=== PATIENT | female | born 1995 | race Caucasian/White ===

== ENCOUNTER 2019-07-28 13:06 | Inpatient (IN) | payer MEDICAID ==
[2019-07-28] MEDS: DIPHENHYDRAMINE 50 MG INJ IV (14:31)
[2019-07-28] MEDS: KETOROLAC 30 MG INJ IV (14:32)
[2019-07-28] MEDS: SOD CHLORIDE 0.9% 500 ML IV ×2 (14:32→21:57)
[2019-07-28 14:34] LABS: ADD MAN DIFF? NO
[2019-07-28 14:37] LABS: BASOPHILS % 0.1 % (0.0-2.0); EOSINOPHILS # 0.1 10^3/ul (0.0-0.5); EOSINOPHILS % 0.7 % (0.0-7.0); HEMATOCRIT 37.1 % (37.0-47.0); HEMOGLOBIN 12.3 g/dl (12.0-16.0); LYMPHOCYTES # 1.5 10^3/ul (0.8-2.9); LYMPHOCYTES % 19.4 % (15.0-51.0); MEAN CORPUSCULAR HEMOGLOBIN 30.8 pg (29.0-33.0); MEAN CORPUSCULAR HGB CONC 33.2 g/dl (32.0-37.0); MEAN CORPUSCULAR VOLUME 92.8 fl (82.0-101.0); MEAN PLATELET VOLUME 9.4 fl (7.4-10.4); MONOCYTE # 0.8 10^3/ul (0.3-0.9); MONOCYTES % 9.8 % (0.0-11.0); NEUTROPHIL # 5.3 10^3/ul (1.6-7.5); NEUTROPHILS % 69.7 % (39.0-77.0); PLATELET COUNT 282 10^3/UL (140-415)
[2019-07-28 14:37] LABS: WHITE BLOOD COUNT 7.6 10^3/ul (4.8-10.8)
[2019-07-28] MEDS: METOCLOPRAMIDE 10 MG INJ IV (14:37)
[2019-07-28 14:44] LABS: ANION GAP 7 (5-13); BLOOD UREA NITROGEN 12 mg/dl (7-20); CALCIUM 9.2 mg/dl (8.4-10.2); CARBON DIOXIDE 26 mmol/L (21-31); CHLORIDE 102 mmol/L (97-110); Estimated GFR > 60 mL/min (>60); GLUCOSE 90 mg/dl (70-220); POTASSIUM 4.1 mmol/L (3.5-5.1); SODIUM 135 mmol/L (135-144)
[2019-07-28 14:51] LABS: ADD UMIC NO; UR ASCORBIC ACID 20 mg/dL (NEGATIVE); UR BACTERIA FEW /HPF (NONE SEEN); UR BILIRUBIN (Dip) NEGATIVE (NEGATIVE); UR BLOOD (Dip) NEGATIVE (NEGATIVE); UR CLARITY SLIGHTLY CLOUDY (CLEAR); UR COLOR YELLOW (YELLOW); UR GLUCOSE (Dip) NEGATIVE (NEGATIVE); UR KETONES (Dip) TRACE mg/dL (NEGATIVE); UR LEUKOCYTE ESTERASE (Dip) NEGATIVE Leu/ul (NEGATIVE); UR MUCUS FEW /HPF (NONE SEEN); UR NITRITE (Dip) NEGATIVE (NEGATIVE); UR RBC 7 /HPF (0-5); UR SPECIFIC GRAVITY (Dip) 1.023 (1.003-1.030); UR SQUAMOUS EPITHELIAL CELL FEW /HPF (FEW); UR TOTAL PROTEIN (Dip) NEGATIVE (NEGATIVE); UR UROBILINOGEN (Dip) NEGATIVE (NEGATIVE); UR WBC 5 /HPF (0-5)
[2019-07-28 15:00] LABS: PROTIME 13.3 Sec (11.9-14.9)
[2019-07-28 18:11] LABS: CSF RBC 0 /uL (0-0)
[2019-07-28 18:13] LABS: CSF RBC 0 /uL (0-0)
[2019-07-28 19:00] LABS: CSF CLARITY CLEAR; CSF COLOR COLORLESS; CSF#TUBES REC'D 4
[2019-07-28 19:01] LABS: CSF#TUBE COUNT TUBE#4
[2019-07-28 19:03] LABS: CSF COLOR COLORLESS
[2019-07-28 19:03] LABS: CSF CLARITY CLEAR; CSF WBC 28 /cmm (0-10); CSF#TUBE COUNT TUBE#1; CSF#TUBES REC'D 4
[2019-07-28 19:04] LABS: CSF WBC 26 /cmm (0-10)
[2019-07-28 19:12] LABS: TOTAL PROTEIN,CSF 47 mg/dl (12-60)
[2019-07-28 19:12] LABS: GLUCOSE,CSF 47 mg/dl (50-80)
[2019-07-28 19:23] LABS: CSF MN% 67.9 %; CSF PMN% 32.1 %
[2019-07-28 19:24] LABS: CSF MN% 80.7 %; CSF PMN% 19.3 %
[2019-07-28] MEDS: AZTREONAM 2 GM in DEXTROSE 5% 100 ML IVPB (19:58)
[2019-07-28] MEDS ORDERED: DOCUSATE SODIUM 100 MG CAP PO (20:30)
[2019-07-28] MEDS ORDERED: VANCOMYCIN IV PER PHARMACY XX (20:30)
[2019-07-28] MEDS ORDERED: NACL 0.9% 3 ML SYG IV (20:30)
[2019-07-28] MEDS ORDERED: BISACODYL (EC) 5 MG TAB PO (20:30)
[2019-07-28] MEDS ORDERED: IBUPROFEN 600 MG TAB PO (20:30)
[2019-07-28 21:31] LABS: LACTIC ACID 0.6 mmol/L (0.5-2.0)
[2019-07-28] MEDS: ACETAMINOPHEN 325 MG TAB PO (22:06)
[2019-07-28] MEDS: VANCOMYCIN 1 GM 250 ML IVPB (23:31)
[2019-07-29] MEDS: ASA/ACETAMINOPHEN/CAFF TAB PO (00:40)
[2019-07-29] MEDS: morphine 2 MG INJ IV ×5 (00:54→22:44)
[2019-07-29] MEDS: AZTREONAM 2 GM in SOD CHLORIDE 0.9% 100 ML IVPB ×3 (05:29→20:19)
[2019-07-29 06:11] LABS: ADD MAN DIFF? NO
[2019-07-29 06:12] LABS: BASOPHILS % 0.3 % (0.0-2.0); EOSINOPHILS # 0.1 10^3/ul (0.0-0.5); EOSINOPHILS % 0.9 % (0.0-7.0); HEMATOCRIT 34.6 % (37.0-47.0); HEMOGLOBIN 11.4 g/dl (12.0-16.0); LYMPHOCYTES # 2.4 10^3/ul (0.8-2.9); LYMPHOCYTES % 30.9 % (15.0-51.0); MEAN CORPUSCULAR HEMOGLOBIN 30.8 pg (29.0-33.0); MEAN CORPUSCULAR HGB CONC 32.9 g/dl (32.0-37.0); MEAN CORPUSCULAR VOLUME 93.5 fl (82.0-101.0); MEAN PLATELET VOLUME 9.2 fl (7.4-10.4); MONOCYTE # 0.7 10^3/ul (0.3-0.9); MONOCYTES % 9.3 % (0.0-11.0); NEUTROPHIL # 4.5 10^3/ul (1.6-7.5); NEUTROPHILS % 58.3 % (39.0-77.0); PLATELET COUNT 279 10^3/UL (140-415); RED CELL DISTRIBUTION WIDTH 12.2 % (11.5-14.5)
[2019-07-29 06:12] LABS: WHITE BLOOD COUNT 7.7 10^3/ul (4.8-10.8)
[2019-07-29 06:33] LABS: ALANINE AMINOTRANSFERASE 31 IU/L (13-69); ALBUMIN 2.9 g/dl (3.3-4.9); ALBUMIN/GLOBULIN RATIO 0.93; ALKALINE PHOSPHATASE 49 IU/L (42-121); ANION GAP 5 (5-13); ASPARTATE AMINO TRANSFERASE 22 IU/L (15-46); BILIRUBIN,INDIRECT 0.3 mg/dl (0-1.1); BILIRUBIN,TOTAL 0.3 mg/dl (0.2-1.3); BLOOD UREA NITROGEN 11 mg/dl (7-20); CALCIUM 8.5 mg/dl (8.4-10.2); CARBON DIOXIDE 23 mmol/L (21-31); CHLORIDE 109 mmol/L (97-110); CREATININE 0.69 mg/dl (0.44-1.00); Estimated GFR > 60 mL/min (>60); GLUCOSE 92 mg/dl (70-220); POTASSIUM 4.1 mmol/L (3.5-5.1); SODIUM 137 mmol/L (135-144)
[2019-07-29] MEDS: ACETAMINOPHEN 325 MG TAB PO ×2 (08:23→20:19)
[2019-07-29] MEDS: KETOROLAC 30 MG INJ IV (08:24)
[2019-07-29] MEDS: VANCOMYCIN 500 MG (PMX) 100 ML IVPB ×2 (09:33→17:12)
[2019-07-29] MEDS ORDERED: VANCOMYCIN 750 MG (PMX) 250 ML IVPB (11:00)
[2019-07-29] MEDS: ONDANSETRON 4 MG INJ IV (19:36)
[2019-07-30 01:37] LABS: VANCOMYCIN,TROUGH 8.7 ug/ml (10.0-20.0)
[2019-07-30] MEDS: VANCOMYCIN 500 MG (PMX) 100 ML IVPB (01:43)
[2019-07-30] MEDS: morphine 2 MG INJ IV ×3 (04:22→16:38)
[2019-07-30] MEDS: AZTREONAM 2 GM in SOD CHLORIDE 0.9% 100 ML IVPB ×2 (05:08→14:25)
[2019-07-30] MEDS: VANCOMYCIN 750 MG (PMX) 250 ML IVPB (08:32)
[2019-07-30] MEDS: SOD CHLORIDE 0.9% 1,000 ML IV ×2 (11:25→21:00)
[2019-07-30 12:27] LABS: HIV 1&2 ANTIBODY NEGATIVE (NEGATIVE)
[2019-07-30] MEDS: ONDANSETRON 4 MG INJ IV (12:43)
[2019-07-30] MEDS: KETOROLAC 30 MG INJ IV ×2 (13:00→22:08)
[2019-07-30 18:56] LABS: RAPID PLASMA REAGIN NONREACTIVE (NR)
[2019-07-30] MEDS: FAMOTIDINE 20 MG TAB PO (20:14)
[2019-07-31] MEDS: KETOROLAC 30 MG INJ IV ×3 (05:14→17:57)
[2019-07-31 06:47] LABS: ADD MAN DIFF? NO
[2019-07-31 06:51] LABS: WHITE BLOOD COUNT 6.7 10^3/ul (4.8-10.8)
[2019-07-31 06:51] LABS: BASOPHILS % 0.3 % (0.0-2.0); EOSINOPHILS # 0.1 10^3/ul (0.0-0.5); EOSINOPHILS % 1.3 % (0.0-7.0); HEMATOCRIT 35.7 % (37.0-47.0); HEMOGLOBIN 11.8 g/dl (12.0-16.0); LYMPHOCYTES # 2.3 10^3/ul (0.8-2.9); LYMPHOCYTES % 33.5 % (15.0-51.0); MEAN CORPUSCULAR HEMOGLOBIN 30.5 pg (29.0-33.0); MEAN CORPUSCULAR HGB CONC 33.1 g/dl (32.0-37.0); MEAN CORPUSCULAR VOLUME 92.2 fl (82.0-101.0); MEAN PLATELET VOLUME 9.2 fl (7.4-10.4); MONOCYTE # 0.7 10^3/ul (0.3-0.9); MONOCYTES % 10.7 % (0.0-11.0); NEUTROPHIL # 3.6 10^3/ul (1.6-7.5); NEUTROPHILS % 53.9 % (39.0-77.0); PLATELET COUNT 270 10^3/UL (140-415); RED BLOOD COUNT 3.87 10^6/ul (4.20-5.40); RED CELL DISTRIBUTION WIDTH 12.1 % (11.5-14.5)
[2019-07-31 07:31] LABS: PHOSPHORUS 3.7 mg/dl (2.5-4.9)
[2019-07-31 07:31] LABS: ANION GAP 7 (5-13); BLOOD UREA NITROGEN 10 mg/dl (7-20); CARBON DIOXIDE 26 mmol/L (21-31); CHLORIDE 104 mmol/L (97-110); CREATININE 0.79 mg/dl (0.44-1.00); Estimated GFR > 60 mL/min (>60); GLUCOSE 89 mg/dl (70-220); MAGNESIUM 1.9 mg/dl (1.7-2.5); SODIUM 137 mmol/L (135-144)
[2019-07-31] MEDS: FAMOTIDINE 20 MG TAB PO (10:09)
[2019-07-31] MEDS: morphine 2 MG INJ IV (10:09)
[2019-08-01 16:51] LABS: WEST NILE VIRUS ANTIBODY (IGG) <1.30 index; WEST NILE VIRUS ANTIBODY (IGM) <0.90 index
== END 2019-07-31 19:03 | disposition home or self-care (01) | DRG 99 ==
LOC: E/R 13:06 → PP2 20:18
PROC: 009U3ZX Drainage of Spinal Canal, Percutaneous Approach, Diagnostic (ICD-10-PCS; principal; 2019-07-28)
DX: G03.0 Nonpyogenic meningitis (principal); G43.909 Migraine, unspecified, not intractable, without status migrainosus; A87.9 Viral meningitis, unspecified; F41.9 Anxiety disorder, unspecified; J34.2 Deviated nasal septum; G44.89 Other headache syndrome
CPT/HCPCS: 36415; 70450; 70486; 80048; 80053; 80202; 81001; 81003; 81025; 82945; 83605; 83735; 84100; 84157; 84443; 85025; 85610; 85730; 86592; 86703; 86788; 86789; 87040-91; 87070; 87400; 89051; 96365; 96375; 99285-25